=== PATIENT | female | born 1960 | race Two or more races ===

== ENCOUNTER 2017-09-29 14:09 | Emergency (ER) | payer OTHER ==
[~2017-09-29] VITALS: Ht 157.5 cm; Wt 60.8 kg
[2017-09-29 14:17] VITALS: Ht 157.5 cm; Wt 60.8 kg
[2017-09-29 16:13] VITALS: BP 112/77
== END 2017-09-29 16:13 | disposition home or self-care (01) ==
LOC: ED 14:09
DX: M77.51 Other enthesopathy of right foot and ankle (principal)
CPT/HCPCS: Q0092